=== PATIENT | male | born 1950 | race African-American/Black ===

== ENCOUNTER 2019-04-19 18:22 | Emergency (ER) | payer MEDICARE, OTHER ==
[~2019-04-19] VITALS: Ht 190.5 cm; Wt 103.0 kg
[~2019-04-19 18:22] MED LIST: AMLO10TA4; AZIT250T12; CIPR-263; CODE60TA; CRES10; DOXA4TAB; TAMS-11; TRAZ-213
[2019-04-19 22:25] VITALS: BP 175/89
== END 2019-04-19 22:27 | disposition home or self-care (01) ==
LOC: ER 18:22
DX: R33.9 Retention of urine, unspecified (principal); I10 Essential (primary) hypertension; Z79.899 Other long term (current) drug therapy; Z87.438 Personal history of other diseases of male genital organs
CPT/HCPCS: 51701; 99283